=== PATIENT | male | born 1940 | race Caucasian/White ===

== ENCOUNTER → 2017-06-02 | Outpatient (CLI) | payer OTHER ==
[~2017-06-02] MED LIST: MULT-506 PO; NATURAL PROSTATE PO; PRLSR20 PO; [UNRECOGNIZED DRUG - OTHER] PO
[2017-06-02 15:53] LABS: BASO % 0.2 %; BASO ABS # 0.01 K/uL (0-0.2); COMPLETE YES; EOS % 4.9 %; HEMATOCRIT 45.9 % (42-52); IG% 0.2 %; LYMPH % 32.6 %; LYMPH ABS # 1.98 K/uL (1.2-3.4); MEAN CELL VOLUME 91.3 fL (80-100); MEAN CORPUSCULAR HEMOGLOBIN 31.8 pg (25-34); MEAN CORPUSCULAR HGB CONC 34.9 g/dl (32-36); MEAN PLATELET VOLUME 9.2 fL (7.4-10.4); MONO % 12.2 %; NEUT % 49.9 %; PLATELET COUNT 178 K/uL (130-400); RED BLOOD COUNT 5.03 M/uL (4.7-6.1); WHITE BLOOD COUNT 6.07 K/uL (4.8-10.8)
[2017-06-02 16:19] LABS: ALT/SGPT 30 U/L (12-78); BLOOD UREA NITROGEN 28 mg/dl (7-18); BUN/CREATININE RATIO 21.9 (10-20); CALCIUM 9.1 mg/dl (8.5-10.1); CARBON DIOXIDE 28 mmol/L (21-32); CHLORIDE 107 mmol/L (98-107); GLUCOSE 92 mg/dl (70-99); POTASSIUM 4.4 mmol/L (3.5-5.1); SODIUM 139 mmol/L (136-145)
[2017-06-02 16:22] LABS: ALB/GLOB RATIO 0.8 (0.9-2); ALKALINE PHOSPHATASE 93 U/L (45-117); AST/SGOT 26 U/L (15-37); CHOLESTEROL 163 mg/dl (0-200); CHOLESTEROL/HDL RATIO 5.1; HDL CHOLESTEROL 32 mg/dl; TRIGLYCERIDES 423 mg/dl (0-150)
== END | disposition home or self-care (01) ==
LOC: C.LAB 14:57
PROVIDERS: ATTEND Physician Assistant Medical
DX: K21.9 Gastro-esophageal reflux disease without esophagitis (principal); J45.909 Unspecified asthma, uncomplicated; I10 Essential (primary) hypertension

== ENCOUNTER → 2017-10-15 | Outpatient (CLI) | payer OTHER | END | disposition home or self-care (01) | LOC: C.LAB 14:55 | PROVIDERS: ATTEND Urology | DX: R97.20 Elevated prostate specific antigen [PSA] (principal) ==